=== PATIENT | female | born 1980 | race Caucasian/White ===

== ENCOUNTER → 2017-01-01 | Outpatient (CLI) | payer OTHER ==
[~2017-01-01] MED LIST: ACETAZOLAMIDE PO; AMITRIPTYLINE H25 MG PO; AMITRIPTYLINE H50 M1 PO; AMITRIPTYLINE HCL; AMLODIPINE BESY10 MG; ASPIRIN325 MG PO; CIPRO500 MG PO; CLONAZEPAM1 MG; CLONAZEPAM1 MG PO; CLONAZEPAM2 M1 PO; Cipro PO; ELAVIL50 MG PO; ENDOCET 5-3251 EACH PO; Elavil PO; FAMOTIDINE40 M2; FENOFIBRATE160 M1; FENOFIBRATE160 M1 PO; FENOFIBRATE160 MG PO; FLEXERIL10 MG PO; FUROSEMIDE40 MG PO; GABAPENTIN300 MG; GABAPENTIN300 MG PO; HYDROCHLOROTH12.5 M2 PO; HYDROCHLOROTHIA25 MG PO; HYDROCODON-ACE1 EAC7 PO; IMITREX100 MG PO; Inderal LA PO; LIPITOR40 MG PO; LIPOFEN150 MG PO; LOVASTATIN40 MG; LOVASTATIN40 MG PO; MACROBID100 MG PO; NORTRIPTYLINE H10 MG PO; NORVASC10 MG PO; NORVASC5 MG PO; PAROXETINE HCL 40 MG; PAXIL40 M1 PO; PAXIL40 MG PO; PERCOCET 5/31 TABLET PO; PREDNISONE10 M1; PROPRANOLOL HCL80 MG; PROTONIX40 MG PO; PYRIDIUM200 MG PO; RELPAX40 MG; SIMVASTATIN40 M1 G-TUBE; SIMVASTATIN40 M1 PO; SLO-NIACIN500 MG PO; ULTRAM50 MG PO; VICODIN,LORT1 TABLET PO; ZOFRAN4 MG PO; ZOMIG5 MG PO; [UNRECOGNIZED DRUG - REMARK]
== END | disposition home or self-care (01) ==
LOC: RAD 14:52
PROC: 009U3ZZ Drainage of Spinal Canal, Percutaneous Approach (ICD-10-PCS; principal; 2017-01-01)
DX: G93.2 Benign intracranial hypertension (principal)
CPT/HCPCS: 62270; 77003; 82945; 84157

== ENCOUNTER → 2017-01-04 | Outpatient (CLI) | payer OTHER | END | disposition home or self-care (01) | LOC: RAD 07:39 | PROC: 3E0S3GC Introduction of Other Therapeutic Substance into Epidural Space, Percutaneous Approach (ICD-10-PCS; principal; 2017-01-04) | DX: G97.1 Other reaction to spinal and lumbar puncture (principal) | CPT/HCPCS: 77003; C1755 ==

== ENCOUNTER 2017-10-20 17:50 | Emergency (ER) | payer OTHER ==
[~2017-10-20] VITALS: Ht 170.2 cm; Wt 141.2 kg
[2017-10-20 18:27] LABS: BASOPHIL (%) 0.4 % (0-1); BASOPHIL COUNT 0.1 K/uL (0-0.1); EOSINOPHIL (%) 0.8 % (0-5); EOSINOPHIL COUNT 0.1 K/uL (0-0.3); HEMATOCRIT 44.5 % (36.0-46.0); HEMOGLOBIN 15.6 G/DL (11.9-15.5); IMMATURE GRANULOCYTE (%) 0.4 % (0.0-0.7); LYMPHOCYTE (%) 25.6 % (15-42); LYMPHOCYTE COUNT 3.3 K/uL (1.0-2.8); MCH 32.8 PG (29.0-34.0); MCHC 35.1 G/DL (30.0-36.0); MCV 93.7 FL (83-99); MONOCYTE (%) 7.3 % (3-12); NEUTROPHIL (%) 65.5 % (45-76); NEUTROPHIL COUNT 8.5 K/uL (1.8-6.4); PLATELET COUNT 300 K/uL (156-360); RBC DIS.WIDTH-CV 13.1 % (11.8-14.6); RBC DIS.WIDTH-SD 45.2 % (39-53); RED BLOOD COUNT 4.75 M/uL (3.80-5.20)
[2017-10-20 18:34] LABS: APPEARANCE CLEAR ((CLEAR)); BILIRUBIN NEGATIVE; BLOOD SMALL; COLOR YELLOW ((YELLOW)); GLUCOSE (STRIP) >=500; KETONES 5; LEUKOCYTES NEGATIVE; NITRITE NEGATIVE; PROTEIN (STRIP) 30; SPECIFIC GRAVITY 1.025 (1.000-1.030); UROBILINOGEN 0.2 MG/DL (0.2-1.0)
[2017-10-20 18:38] LABS: BACTERIA RARE /HPF; EPITHELIAL CELLS RARE /HPF; MUCUS TRACE /LPF; WHITE BLOOD CELLS 0-5 /HPF (0-5)
[2017-10-20 18:39] LABS: ALBUMIN 3.9 g/dL (3.2-4.8); CHLORIDE 106 mEq/L (99-109); SODIUM 137 mEq/L (136-147)
[2017-10-20 18:42] LABS: GLUCOSE 187 mg/dL (70-99)
[2017-10-20 18:44] LABS: TOTAL BILIRUBIN 0.3 mg/dL (0.0-1.0)
[2017-10-20 18:45] LABS: ALKALINE PHOSPHATASE 98 IU/L (3-129); CREATININE 0.8 mg/dL (0.6-1.3); GFR ESTIMATE (CALCULATED) > 59 mL/min/
[2017-10-20 18:46] LABS: UREA NITROGEN (BUN) 14 mg/dL (9-23)
[2017-10-20 18:47] LABS: AST (GOT) 15 IU/L (2-34)
[2017-10-20 18:48] LABS: ALT (GPT) 20 IU/L (3-49)
[2017-10-20 18:49] LABS: LIPASE 37 U/L (1.0-51.0)
[2017-10-20] MEDS ORDERED: ZOFRAN ODT4 MG PO (19:10)
[2017-10-20] MEDS ORDERED: PERCOCET 5/31 TABLET PO (19:10)
[2017-10-20 20:10] VITALS: BP 155/110
== END 2017-10-20 20:29 | disposition home or self-care (01) ==
LOC: EME 17:50
PROVIDERS: Physician Assistant
DX: N20.0 Calculus of kidney (principal); K76.0 Fatty (change of) liver, not elsewhere classified; Z85.528 Personal history of other malignant neoplasm of kidney; Z90.5 Acquired absence of kidney; Z87.442 Personal history of urinary calculi; I10 Essential (primary) hypertension; Z88.0 Allergy status to penicillin; Z88.2 Allergy status to sulfonamides; Z90.49 Acquired absence of other specified parts of digestive tract; Z90.710 Acquired absence of both cervix and uterus; F17.200 Nicotine dependence, unspecified, uncomplicated
CPT/HCPCS: 74176; 80053; 81003; 83690; 85025; 99281; 99284; J1885